=== PATIENT | male | born 1975 | race African-American/Black ===

== ENCOUNTER 2019-01-28 10:03 | Emergency (ER) | payer OTHER ==
[2019-01-28] MEDS ORDERED: KETOROLAC TROMETHAMINE INJ/PF 30 MG/1 ML SDV IV ONE (11:06)
[2019-01-28] MEDS ORDERED: CLINDAMYCIN 900 MG/D5W RTU 900 MG/50 ML RTUPB IV ONE (11:06)
[2019-01-28] MEDS ORDERED: NORMAL SALINE 500 ML IV ONE (11:07)
[2019-01-28 11:56] LABS: ABSOLUTE NEUT (AUTO) 6.8 10^3/uL (1.7-8.2); BASOPHILS % (AUTO) 0.4 % (0-2); EOSINOPHILS % (AUTO) 0.4 % (0-6); HEMATOCRIT 45.6 % (37.9-51.0); HEMOGLOBIN 16.3 g/dL (13.5-17.0); LYMPHOCYTES % (AUTO) 20.5 % (13-45); MEAN CORPUSCULAR HEMOGLOBIN 29.5 pg (27.0-33.4); MEAN CORPUSCULAR HGB CONC 35.7 g/dL (32.0-36.0); MEAN CORPUSCULAR VOLUME 83 fl (80-97); MONOCYTES % (AUTO) 9.7 % (3-13); PLATELET COUNT 263 10^3/uL (150-450); RED BLOOD COUNT 5.53 10^6/uL (4.35-5.55); RED CELL DISTRIBUTION WIDTH 12.9 % (11.5-14.0); TOTAL CELLS COUNTED % (AUTO) 100 %; WHITE BLOOD COUNT 9.8 10^3/uL (4.0-10.5)
--- NOTE | 2019-01-28 11:58 | ER Document Report ---
ED General - General Chief Complaint: Abscess Stated Complaint: FOOT PAIN Time Seen by Provider: 01/28/19 10:37 Primary Care Provider: DONTAE AYALA [Primary Care Provider] - Follow up as needed TRAVEL OUTSIDE OF THE [place] IN LAST 30 DAYS: No - HPI Notes: Patient presents emergency department for evaluation. He had what he believed to be an abscess. He was seen at a local urgent care 6 days ago. They attempted incision and drainage. No purulent material was obtained. He states they were supposed to give him a prescription for antibiotics at that time but they did not. He went back yesterday when the pain and swelling were worse. He has had some chills but no evgeny fevers. He had 2 doses of Bactrim total. - Related Data Allergies/Adverse Reactions: No Known Allergies Allergy (Verified 01/28/19 10:05) Past Medical History - General Information source: Patient - Social History Smoking Status: Current Every Day Smoker Family History: Hypertension, Malignancy Patient has suicidal ideation: No Patient has homicidal ideation: No - Past Medical History Cardiac Medical History: Reports: Hx Hypertension Pulmonary Medical History: Reports: Hx Asthma Renal/ Medical History: Denies: Hx Peritoneal Dialysis Musculoskeletal Medical History: Reports Hx Musculoskeletal Trauma Traumatic Medical History: Reports: Hx Fractures - wrist Review of Systems - Review of Systems Constitutional: Chills EENT: No symptoms reported Cardiovascular: No symptoms reported Respiratory: No symptoms reported Gastrointestinal: No symptoms reported Skin: See HPI Neurological/Psychological: No symptoms reported Physical Exam - Vital signs Vitals: Temp Pulse Resp BP Pulse Ox 98.2 F 98 16 152/102 H 100 01/28/19 10:09 01/28/19 10:09 01/28/19 10:09 01/28/19 10:09 01/28/19 10:09 - Notes Notes: Vital signs reviewed, please refer to chart. Patient is normocephalic, atrauma tic. Pupils equal round, reactive to light. Neck is supple without meningismus. Heart is regular rate and rhythm. Lungs are clear to auscultation bilaterally. Abdomen is soft, nontender, normoactive bowel sounds throughout. Examination of the left lower extremity reveals 2+ pitting edema from the mid calf distally. Dorsalis pedis and posterior tibial pulses are 3+. Capillary refill is brisk. Sensation is intact. There is an open wound overlying the Achilles tendon, superficial in nature. No active drainage. There is some erythema and calor noted but no fluctuance. Course - Re-evaluation Re-evalutation: 01/28/19 12:35 Patient presents to the emergency department for evaluation. I do not see any fluctuant abscess to drain at this time. He does however, have a significant cellulitis. His heart was mildly elevated on arrival. It improved after fluids and medication here. He is only had 2 doses of oral antibiotics. At this point he certainly has not failed outpatient treatment. He is given an IV dose of antibiotics. His white blood cell count is normal. He does not meet sepsis criteria. We will send him home to continue the antibiotics as written from the urgent care. I will also add Keflex. He is to follow-up with his primary care physician, return to the emergency department with worsening or new concerning symptoms. - Vital Signs Vital signs: Temp Pulse Resp BP Pulse Ox 98.2 F 98 16 152/102 H 100 01/28/19 10:09 01/28/19 10:09 01/28/19 10:09 01/28/19 10:09 01/28/19 10:09 - Laboratory Result Diagrams: 01/28/19 11:23 01/28/19 11:23 Laboratory results interpreted by me: 01/28/19 11:23 Chloride 96 L Carbon Dioxide 32 H Creatinine 1.39 H Est GFR (Non-Af Amer) 56 L Discharge - Discharge Clinical Impression: Cellulitis Condition: Stable Instructions: Cephalexin ([facility]), Cellulitis ([facility]) Additional Instructions: Take all of the antibiotics as prescribed until gone. Keep the wound clean with soap and water. Follow-up with primary care this week. If you develop fevers, vomiting, worsening pain or swelling, or any other new or concerning symptoms, return immediately to the emergency department for reevaluation. Referrals: LOCALMD,NO [Primary Care Provider] - Follow up as needed
[2019-01-28 12:21] LABS: ANION GAP 12 (5-19); BLOOD UREA NITROGEN 13 mg/dL (7-20); CALCIUM 9.5 mg/dL (8.4-10.2); CARBON DIOXIDE 32 mmol/L (22-30); CHLORIDE 96 mmol/L (98-107); GLUCOSE 94 mg/dL (75-110); POTASSIUM 3.6 mmol/L (3.6-5.0); SODIUM 140.4 mmol/L (137-145)
[2019-01-28 12:48] VITALS: BP 136/97
== END 2019-01-28 12:48 | disposition home or self-care (01) ==
LOC: ER 10:03
DX: L03.90 Cellulitis, unspecified (principal); S81.809A Unspecified open wound, unspecified lower leg, initial encounter; X58.XXXA Exposure to other specified factors, initial encounter; R68.83 Chills (without fever); R60.0 Localized edema; F17.200 Nicotine dependence, unspecified, uncomplicated; I10 Essential (primary) hypertension; J45.909 Unspecified asthma, uncomplicated
CPT/HCPCS: 99283; 96375; 96365; 36415; 87040; 85025; 80048; J1885; J7040

== ENCOUNTER 2020-02-04 14:52 | Emergency (ER) | payer SELFPAY ==
--- NOTE | 2020-02-04 15:52 | ER Document Report ---
ED Medical Screen (RME) - General Chief Complaint: Chest Pain Stated Complaint: CHEST PAIN,LEFT ARM PAIN,BACK PAIN Time Seen by Provider: 02/04/20 15:48 Mode of Arrival: Ambulatory Information source: Patient Notes: 44-year-old male presented to ED for complaint of chest pain since Sunday. He states 4:00 in the morning Sunday he woke up with pain 10 left arm numbness to his fingers. He states it went to his back and into his chest. He states he took some aspirin thinking it would get better. He states the pain is still in his chest back and down his arm with numbness to his fingers. He has a history of high blood pressure but has not been on medicine in a long time. TRAVEL OUTSIDE OF THE [place] IN LAST 30 DAYS: No - Related Data Allergies/Adverse Reactions: No Known Allergies Allergy (Verified 01/28/19 10:05) Past Medical History - General Information source: Patient - Social History Cigarette use (# per day): Yes - Pack a day Frequency of alcohol use: Occasional Drug Abuse: None Lives with: Alone Family history: Reviewed & Not Pertinent - Past Medical History Cardiac Medical History: Reports: Hx Hypertension Pulmonary Medical History: Reports: Hx Asthma EENT Medical History: Reports: None Neurological Medical History: Reports: None Endocrine Medical History: Reports: None Renal/ Medical History: Reports: None Malignancy Medical History: Reports None GI Medical History: Reports: None Musculoskeltal Medical History: Reports Hx Musculoskeletal Trauma Skin Medical History: Reports None Psychiatric Medical History: Reports: None Traumatic Medical History: Reports: Hx Fractures - wrist Infectious Medical History: Reports: None Surgical Hx: Negative Past Surgical History: Reports: None - Immunizations Immunizations up to date: No Hx Diphtheria, Pertussis, Tetanus Vaccination: No History of Pneumococcal Vaccine: No History of Influenza Vaccine for 08/2019 - 01/2020 Season: No Physical Exam - Vital signs Vitals: Temp Pulse Resp BP Pulse Ox 98.7 F 66 18 157/90 H 98 02/04/20 15:02/04/20 15:02/04/20 15:02/04/20 15:02/04/20 15:09 Course - Vital Signs Vital signs: Temp Pulse Resp BP Pulse Ox 98.7 F 66 18 157/90 H 98 02/04/20 15:02/04/20 15:09 02/04/20 15:09 02/04/20 15:09 02/04/20 15:09
--- NOTE | 2020-02-04 16:10 | RADIOLOGY REPORT (SQ) ---
EXAM DESCRIPTION: CHEST 2 VIEWS COMPLETED DATE/TIME: 02/04/2020 4:01 pm REASON FOR STUDY: Chest pain pressure radiating back and left arm COMPARISON: 05/28/2014 EXAM PARAMETERS: NUMBER OF VIEWS: two views TECHNIQUE: Digital Frontal and Lateral radiographic views of the chest acquired. RADIATION DOSE: NA LIMITATIONS: none FINDINGS: LUNGS AND PLEURA: No opacities, masses or pneumothorax. No pleural effusion. MEDIASTINUM AND HILAR STRUCTURES: No masses or contour abnormalities. HEART AND VASCULAR STRUCTURES: Heart normal size. No evidence for failure. BONES: No acute findings. HARDWARE: None in the chest. OTHER: No other significant finding. IMPRESSION: NO ACUTE RADIOGRAPHIC FINDING IN THE CHEST. TECHNICAL DOCUMENTATION: JOB ID: [id number] 2010 [employer]- All Rights Reserved Reading location - IP/workstation name: [email or web address]
[2020-02-04 16:31] LABS: ABSOLUTE BASOPHILS # (AUTO) 0.1 10^3/uL (0.0-0.2); ABSOLUTE EOSINOPHILS # (AUTO) 0.1 10^3/uL (0.0-0.6); ABSOLUTE LYMPHOCYTES (AUTO) 2.4 10^3/uL (0.5-4.7); ABSOLUTE MONOCYTES (AUTO) 0.5 10^3/uL (0.1-1.4); ABSOLUTE NEUT (AUTO) 3.4 10^3/uL (1.7-8.2); BASOPHILS % (AUTO) 0.8 % (0-2); EOSINOPHILS % (AUTO) 1.8 % (0-6); HEMOGLOBIN 15.9 g/dL (13.5-17.0); LYMPHOCYTES % (AUTO) 36.6 % (13-45); MEAN CORPUSCULAR HEMOGLOBIN 29.7 pg (27.0-33.4); MEAN CORPUSCULAR HGB CONC 36.2 g/dL (32.0-36.0); MEAN CORPUSCULAR VOLUME 82 fl (80-97); MONOCYTES % (AUTO) 8.1 % (3-13); PLATELET COUNT 258 10^3/uL (150-450); RED BLOOD COUNT 5.36 10^6/uL (4.35-5.55); RED CELL DISTRIBUTION WIDTH 13.6 % (11.5-14.0); SEGMENTED NEUTROPHILS % (AUTO) 52.7 % (42-78); TOTAL CELLS COUNTED % (AUTO) 100 %; WHITE BLOOD COUNT 6.5 10^3/uL (4.0-10.5)
[2020-02-04 16:38] LABS: ALBUMIN 4.5 g/dL (3.5-5.0); ALKALINE PHOSPHATASE 68 U/L (38-126); ANION GAP 11 (5-19); ASPARTATE AMINO TRANSFERASE 24 U/L (17-59); BILIRUBIN,TOTAL 0.5 mg/dL (0.2-1.3); BLOOD UREA NITROGEN 14 mg/dL (7-20); CALCIUM 9.4 mg/dL (8.4-10.2); CARBON DIOXIDE 30 mmol/L (22-30); CHLORIDE 95 mmol/L (98-107); GLUCOSE 111 mg/dL (75-110); POTASSIUM 3.5 mmol/L (3.6-5.0); TOTAL PROTEIN 7.1 g/dL (6.3-8.2)
--- NOTE | 2020-02-04 17:26 | EKG REPORT ---
SEVERITY:- ABNORMAL ECG - SINUS RHYTHM PROBABLE LEFT VENTRICULAR HYPERTROPHY BORDERLINE PROLONGED QT INTERVAL : Confirmed by: Lenore Barboza 04-Feb-2020 17:25:33
--- NOTE | 2020-02-04 18:37 | ER Document Report ---
ED General - General Chief Complaint: Chest Pain Stated Complaint: CHEST PAIN,LEFT ARM PAIN,BACK PAIN Time Seen by Provider: 02/04/20 15:48 Mode of Arrival: Ambulatory TRAVEL OUTSIDE OF THE [place] IN LAST 30 DAYS: No - HPI Notes: Patient is a 44-year-old male who presents emergency department for evaluation of chest pain for the last several days. He states that he woke at 4:00 in the morning early on Sunday. He had a pain that was sharp, radiates through to his back. He states he has had some numbness in his left hand, particularly in his thumb and index finger. He states this really only to light touch. He denies any weakness. He states that the pain was initially sharp, now it feels like a squeezing ache pain. He states that position seems to make it worse. He states he really cannot get comfortable at night. Nothing seems to make it better. He denies any associated shortness of breath, nausea, diaphoresis, near syncope. Patient admits to a history of hypertension. He was on medications in the past, but he is not sure as to what. He does not currently follow with a primary care provider. - Related Data Allergies/Adverse Reactions: No Known Allergies Allergy (Verified 02/04/20 15:48) Home Medications: denies Past Medical History - General Information source: Patient - Social History Smoking Status: Current Every Day Smoker Cigarette use (# per day): Yes - Pack a day Chew tobacco use (# tins/day): No Frequency of alcohol use: Occasional Drug Abuse: None Lives with: Alone Family History: Hypertension, Malignancy. denies: CAD Patient has suicidal ideation: No Patient has homicidal ideation: No - Past Medical History Cardiac Medical History: Reports: Hx Hypertension Pulmonary Medical History: Reports: Hx Asthma EENT Medical History: Reports: None Neurological Medical History: Reports: None Endocrine Medical History: Reports: None Renal/ Medical History: Reports: None Malignancy Medical History: Reports None GI Medical History: Reports: None Musculoskeletal Medical History: Reports Hx Musculoskeletal Trauma Skin Medical History: Reports None Psychiatric Medical History: Reports: None Traumatic Medical History: Reports: Hx Fractures - wrist Infectious Medical History: Reports: None Surgical Hx: Negative Past Surgical History: Reports: None - Immunizations Immunizations up to date: No Hx Diphtheria, Pertussis, Tetanus Vaccination: No History of Pneumococcal Vaccine: No Review of Systems - Review of Systems Cardiovascular: See HPI Musculoskeletal: See HPI Neurological/Psychological: See HPI Physical Exam - Vital signs Vitals: Temp Pulse Resp BP Pulse Ox 98.7 F 66 18 157/90 H 98 02/04/20 15:09 02/04/20 15:09 02/04/20 15:09 02/04/20 15:09 02/04/20 15:09 - Notes Notes: Vital signs reviewed, please refer to chart. Head is normocephalic, atraumatic. Pupils equal round, reactive to light. Neck is supple without meningismus. Heart is regular rate and rhythm. Lungs are clear to auscultation bilaterally. Chest wall is tender to palpation. Abdomen is soft, nontender, normoactive bowel sounds throughout. Examination of the spine yields no midline tenderness step-off. He has paraspinal musculature tenderness noted approximately T3 to the left of the spine with associated spasm. This reproduces his chest pain. Extremities without cyanosis, clubbing. Posterior calves are nontender. Peripheral pulses are equal. Skin is warm and dry. Patient has paraspinal musculature tenderness noted to the cervical spine as well. He has tenderness to palpation over the left trapezius. The patient has diminished sensation to light touch over the left palmar thumb and index finger, as well as the thenar eminence, consistent with cutaneous distribution of the median nerve. He has full range of motion and plus 5 out of 5 strength at the shoulder, elbow, wrist, fingers, thumb. He has good opposition, flexion, extension of the thumb. Course - Re-evaluation Re-evalutation: 02/04/20 19:04 Patient is a 44-year-old gentleman comes in to the emergency department for evaluation of chest pain. Is been ongoing for several days. Is atypical in nature. Is worsened by position. Has associated hand numbness in the distribution of the median nerve. My suspicion is that this is all musculoskeletal spasm with resultant numbness and tingling. Certainly his pain is been present long enough that he is ruled out for acute coronary syndrome. He does not have a premature family history of heart disease. His blood pressure is elevated here in the emergency department. I explained to him that he should follow this up with primary care. He used to be on antihypertensives, but he is unsure as to what medication he was on. His blood pressures have been in the 140s to 150s on the systolic range, 90s diastolic. I explained the patient that he needs to quit smoking. I explained to the patient that he should have a close follow-up of his blood pressure. I will send him home with Dana. I warned him about dizziness and drowsiness with this medication. He voiced understanding to this as well. [facility] or new concerning symptoms of any sort. - Vital Signs Vital signs: Temp Pulse Resp BP Pulse Ox 98.7 F 66 17 149/94 H 100 02/04/20 15:09 02/04/20 15:09 02/04/20 18:01 02/04/20 18:01 02/04/20 18:18 - Laboratory Result Diagrams: 02/04/20 16:05 02/04/20 16:05 Laboratory results interpreted by me: 02/04/20 02/04/20 16:05 16:05 MCHC 36.2 H Sodium 136.2 L Potassium 3.5 L Chloride 95 L Glucose 111 H - Diagnostic Test Radiology reviewed: Reports reviewed Radiology results interpreted by me: 02/04/20 19:06 Chest X-Ray 02/04/20 15:53 IMPRESSION: NO ACUTE RADIOGRAPHIC FINDING IN THE CHEST. - EKG Interpretation by Me Additional EKG results interpreted by in: 02/04/20 19:06 Sinus mechanism with a rate of 77 bpm. Normal axis. Normal intervals. Findings consistent with LVH. Borderline prolonged QT interval. No acute ST changes concerning for ischemia or infarction. Discharge - Discharge Clinical Impression: Musculoskeletal chest pain, Thoracic back pain, Numbness of left hand Condition: Stable Disposition: HOME, SELF-CARE Instructions: Chest Wall Pain ([facility]), Numbness or Paresthesia ([facility]) Additional Instructions: Take muscle relaxer as directed. Follow-up with primary care. You need to be evaluated for high blood pressure. Moist heat to the painful area. Return to the emergency department with worsening or new concerning symptoms of any sort. Prescriptions: Cyclobenzaprine HCl [Flexeril 10 mg Tablet] 10 mg PO TIDP PRN #15 tab PRN Reason:
[2020-02-04 19:35] VITALS: BP 159/94
== END 2020-02-04 19:40 | disposition home or self-care (01) ==
LOC: ER 14:52
DX: R07.89 Other chest pain (principal); M54.6 Pain in thoracic spine; R20.0 Anesthesia of skin; M79.602 Pain in left arm; F17.210 Nicotine dependence, cigarettes, uncomplicated; I10 Essential (primary) hypertension
CPT/HCPCS: 36415; 71046; 80053; 84484; 85025; 93005; 93010; 99285